=== PATIENT | female | born 1995 | race Caucasian/White ===

== ENCOUNTER 2022-05-25 14:51 | Emergency (ER) | payer BC ==
[~2022-05-25] VITALS: Ht 170.2 cm; Wt 65.8 kg
[2022-05-25 14:53] VITALS: BP 128/77
[2022-05-25] MEDS ORDERED: ACETAMINOPHEN EXTRA STRENGTH 500 MG TAB PO ONE (15:00)
--- NOTE | 2022-05-25 15:13 | NUR ---
COVID AND FLU SWAB COLLECTED
--- NOTE | 2022-05-25 15:21 | NUR ---
MOVED TO ER BED 3 FOR CHAIR C
[2022-05-25] MEDS ORDERED: NACL 0.9% 1,000 ML IV ONE (15:25)
[2022-05-25 15:43] LABS: BASOPHILS % (AUTO) 0.2 % (0.0-2.0); HEMATOCRIT 39.7 % (36-48); HEMOGLOBIN 12.5 g/dL (12.0-16.0); LYMPHOCYTES # (AUTO) 0.7 K/uL (2.5-16.5); LYMPHOCYTES % (AUTO) 6.1 % (20.5-51.1); MEAN CORPUSCULAR HEMOGLOBIN 20 pg (27-31); MEAN CORPUSCULAR HGB CONC 32 g/dL (33-37); MEAN CORPUSCULAR VOLUME 64.1 fL (80-94); MONOCYTES # (AUTO) 1.3 K/uL (0.8-1.0); MONOCYTES % (AUTO) 10.7 % (1.7-9.3); NEUTROPHILS # (AUTO) 9.8 K/uL (1.8-7.7); PLATELET COUNT (AUTO) 237 K/uL (140-450); RED BLOOD CELL COUNT(AUTO) 6.19 MIL/uL (4.20-5.40); RED CELL DISTRIBUTION WIDTH 14.3 % (11.6-13.7); WHITE BLOOD COUNT (AUTO) 11.9 K/uL (4.8-10.8)
[2022-05-25 15:48] LABS: APPEARANCE,URINE CLEAR (CLEAR); BILIRUBIN,URINE NEGATIVE (NEGATIVE); BLOOD, URINE NEGATIVE (NEGATIVE); COLOR,URINE YELLOW (YELLOW); LEUKOCYTE ESTERASE ,URINE TRACE (NEGATIVE); NITRITE, URINE NEGATIVE (NEGATIVE); PH,URINE 8.5 (5.0-9.0); UGLUCOSE NEGATIVE (NEGATIVE)
--- NOTE | 2022-05-25 15:55 | NUR ---
27 y/o female biba from home for right flank pain x today. Patient has a history of kidney stones. Patient was febrile at triage and was medicated. Patient has 10/10 right flank pain and states its the same pain as when she had kidney stones. Medical History: Kidney Stones, Migraines ALLERGY: HYDROCODONE
[2022-05-25 16:15] LABS: ALBUMIN 3.9 g/dL (3.4-5.0); CARBON DIOXIDE 26.8 mmol/L (21-32); CREATININE 0.7 mg/dL (0.6-1.3); POTASSIUM 3.8 mmol/L (3.5-5.1); TOTAL BILIRUBIN 0.6 mg/dL (0.0-1.0)
[2022-05-25 16:24] LABS: RBC,URINE NONE SEEN /HPF (0-5); TRICHOMONAS,URINE None Seen /HPF (None Seen); WBC,URINE 0-5 /HPF (0-5); YEAST,URINE None Seen /HPF (None Seen)
--- NOTE | 2022-05-25 17:17 | NUR ---
Dr. Ashby evaluating patient at bedside.
[2022-05-25] MEDS ORDERED: OSEL75CA16 PO (17:37)
[2022-05-25 17:56] VITALS: BP 104/68
--- NOTE | 2022-05-25 17:56 | NUR ---
Patient discharged with v/s stable. Written and verbal after care instructions given. Patient alert, oriented and verbalized understanding of instructions. Ambulatory with steady gait. All questions addressed prior to discharge. ID band removed. Patient advised to follow up with PMD. Rx of Tamiflu given. Opportunity to ask questions provided and answered.
--- NOTE | 2022-05-25 17:57 | NUR ---
The patient's care was reviewed and supervised by [facility], RN.
== END 2022-05-25 17:56 | disposition home or self-care (01) ==
LOC: MED 14:51
DX: J10.1 Influenza due to other identified influenza virus with other respiratory manifestations (principal); Z20.822 Contact with and (suspected) exposure to COVID-19; G43.909 Migraine, unspecified, not intractable, without status migrainosus; N20.0 Calculus of kidney
CPT/HCPCS: 36415; 71045; 74177; 80053; 81001; 81025; 83605; 85025; 85610; 85730; 87040; 87086; 87426; 87804; 96360; 99285; Q0092; Q9967